=== PATIENT | male | born 1970 | race Caucasian/White ===

== ENCOUNTER 2017-12-21 21:22 | Inpatient (IN) | payer MEDICAID, SELFPAY ==
[2017-12-21 21:24] VITALS: BP 147/106; PULSE 125; RESP 15; TEMP 36.6; O2SAT 94; BMI 24.4
[2017-12-21 22:24] LABS: Hematocrit 49.4 % (40-54); Hemoglobin 16.7 g/dl (13.0-16.5); Mean Corp Hgb Conc 33.8 g/gl (32-36); Mean Corpuscular Hgb 30.5 pg (27.0-32.0); Mean Corpuscular Volume 90.3 fL (80-94); Mean Platelet Vol. 9.2 fl (6.2-12.0); Platelet Count 221 K/mm3 (150-450); RBC Distribution Width CV 13.7 % (11.6-14.6); RBC Distribution Width SD 45.5 fl (35.1-43.9); Red Blood Count 5.47 M/mm3 (4.6-6.2); Scan Indicated on CBC? Y/N NO; White Blood Count 7.4 K/mm3 (4.4-11.0)
[2017-12-21] MEDS: proMETHazine 25 MG/ML Syringe 6.25 MG IV (22:33)
[2017-12-21] MEDS: 0.9% Normal Saline 1,000 ML 1000 ML IV (22:33)
--- NOTE | 2017-12-21 22:35 | RAD_ITS ---
STUDY: X-RAY CHEST REASON FOR EXAM: Male, 47 years old. Nausea vomiting swelling and hallucinations. Alcohol abuse. TECHNIQUE: Frontal and lateral views of the chest. COMPARISON: None. FINDINGS: The lungs are clear and expanded. There is no demonstrated pleural abnormality. Normal size heart. Normal mediastinum and adele. Normal visualized pulmonary arteries. Normal visualized aortic arch and descending thoracic aorta. Normal visualized thoracic spine. Normal visualized ribs, clavicles, and shoulders. There is no demonstrated abnormality of the visualized soft tissue structures of the upper abdomen. RAD/Chest PA and Lateral IMPRESSION: Normal x-ray examination of the chest. Electronically Signed: Roger Villarreal MD at 23:10 EDT , Service support ,
[2017-12-21 22:39] LABS: ALB/GLOB Ratio 0.8 RATIO (0.9-2.4); AST(SGOT) 99 U/L (15-37); Alanine Aminotransfer ALT/SGPT 165 U/L (16-61); Albumin, Serum 3.5 g/dL (3.2-5.0); Alkaline Phosphatase 85 U/L (45-117); Anion Gap 9 (5-15); BUN 15 mg/dL (7-18); BUN/Creat Ratio 12.5 RATIO (10-20); Chloride 116 mmol/L (98-107); EST Glomerular Filtration Rate 69 mL/min (>60); Est Glom Filt Rate - Afr Amer 84 mL/min (>60); Estimated Creatinine Clearance 81.92 ml/min; Globulin 4.4 g/dL (2.2-4.2); Glucose 107 mg/dL (74-106); Lipase 280 U/L (73-393); Potassium 3.7 mmol/L (3.5-5.1); Protein, Total 7.9 g/dL (6.4-8.2); Sodium Level 148 mmol/L (136-145)
[2017-12-21 22:46] LABS: Amphetamine Urine VISTA NEGATIVE (<1000 ng/mL); Barbiturate Urine VISTA NEGATIVE (< 200 ng/mL); Benzodiazepine Urine VISTA NEGATIVE (< 200 ng/mL); Cocaine Urine VISTA NEGATIVE (< 300 ng/mL); Ecstacy Urine VISTA NEGATIVE (< 500 ng/mL); Methadone Urine VISTA NEGATIVE (< 300 ng/mL); PCP Urine VISTA NEGATIVE (< 25 ng/mL); THC Urine VISTA NEGATIVE (< 50 ng/mL); Vista UDS pH Range 5
[2017-12-21 23:23] VITALS: PULSE 92; RESP 19
--- NOTE | 2017-12-21 23:52 | ED.VISSUMM ---
- ER Visit Summary Date of Service: 12/21/17 Chief Complaint: Alcohol withdrawal History of Present Illness: The patient is a 47 M who presents with somebody from [employer] reporting that he is in alcohol withdrawal. States that he drinks 1 L of vodka per day. He reports that he drank a liter of vodka today. However, he reports that he has not had a drink for 14 hours. Patient also has a history of intravenous methamphetamine abuse. He reports that he has not used since December 05. He is a very poor informant. Physical Examination: Vitals: 97.8, 147 106, 125, 15, 94% on room air which is not hypoxic. General: Well-nourished and well-developed. Clearly intoxicated. Head: Normocephalic atraumatic. Neck: Supple, no lymphadenopathy. No JVD. Nontender. Cardiovascular: Regular rate and rhythm. No murmurs. Respiratory: No respiratory distress. Clear to auscultation bilaterally. Abdominal: Soft, mild right upper quadrant tenderness to palpation, nondistended, normal bowel sounds. No guarding, rebound, or peritoneal signs. Back: Nontender. Extremities: Nontender, no edema. Skin: Normal color, no rash. Neurologic: Alert and oriented ?3. Cranial nerves II through XII are intact. Normal strength and sensation. Psych: Depressed affect. Test Results: Blood alcohol level is 366 at 10 PM. Tox screen is negative. CBC is marked for hemoglobin 16.7. Chem-7 is more for sodium 148, chloride 116, glucose 107, calcium 8.0. LFTs marked for globulin 4.4, ALT 165, and AST of 99. Lipase is normal. Tox screen is negative. Emergency Department Course and Treatment: Patient was given a liter bolus normal saline. Is given dose of Phenergan IV. When I went back into discuss his alcohol level with the patient and the counselor she had left. I contacted her on the phone and she reports that he does not have anyone at home that can keep an eye on him. Treatment Plan: The patient will be observed in the emergency department overnight. He will then be reassessed to see if he still wants to go through detox/rehab and if he is truly having alcohol withdrawal. Disposition: Pending Impression: 1. Alcohol intoxication. 2. Reported methamphetamine abuse. 3. History of hepatitis C. This note was generated with Dragon dictation software. It may contain incorrect words, spelling, and punctuation that were not noted in review of the chart prior to signing ED Disposition - Plan for ED Patient: Chief Complaint: Subst Abuse Referrals: [facility] Doctor,Out of [Primary Care Provider] -
[2017-12-22] VITALS (14 sets, daily range): BP systolic 99–131; BP diastolic 62–78; PULSE 70–91; RESP 12–20; TEMP 36.8–37.4; O2SAT 95–99; BMI 25.0; BMI 25.1
--- NOTE | 2017-12-22 00:03 | ED.DCSUM_ITS ---
- ER Visit Summary Date of Service: 12/21/17 Chief Complaint: Alcohol withdrawal History of Present Illness: The patient is a 47 M who presents with somebody from [employer] reporting that he is in alcohol withdrawal. States that he drinks 1 L of vodka per day. He reports that he drank a liter of vodka today. However, he reports that he has not had a drink for 14 hours. Patient also has a history of intravenous methamphetamine abuse. He reports that he has not used since December 05. He is a very poor informant. Physical Examination: Vitals: 97.8, 147 106, 125, 15, 94% on room air which is not hypoxic. General: Well-nourished and well-developed. Clearly intoxicated. Head: Normocephalic atraumatic. Neck: Supple, no lymphadenopathy. No JVD. Nontender. Cardiovascular: Regular rate and rhythm. No murmurs. Respiratory: No respiratory distress. Clear to auscultation bilaterally. Abdominal: Soft, mild right upper quadrant tenderness to palpation, nondistended , normal bowel sounds. No guarding, rebound, or peritoneal signs. Back: Nontender. Extremities: Nontender, no edema. Skin: Normal color, no rash. Neurologic: Alert and oriented ?3. Cranial nerves II through XII are intact. Normal strength and sensation. Psych: Depressed affect. Test Results: Blood alcohol level is 366 at 10 PM. Tox screen is negative. CBC is marked for hemoglobin 16.7. Chem-7 is more for sodium 148, chloride 116 , glucose 107, calcium 8.0. LFTs marked for globulin 4.4, ALT 165, and AST of 99. Lipase is normal. Tox screen is negative. Emergency Department Course and Treatment: Patient was given a liter bolus normal saline. Is given dose of Phenergan IV. When I went back into discuss his alcohol level with the patient and the counselor she had left. I contacted her on the phone and she reports that he does not have anyone at home that can keep an eye on him. Treatment Plan: The patient will be observed in the emergency department overnight. He will then be reassessed to see if he still wants to go through detox/rehab and if he is truly having alcohol withdrawal. Disposition: Pending Impression: 1. Alcohol intoxication. 2. Reported methamphetamine abuse. 3. History of hepatitis C. This note was generated with Dragon dictation software. It may contain incorrect words, spelling, and punctuation that were not noted in review of the chart prior to signing ED Disposition - Plan for ED Patient: Chief Complaint: Subst Abuse Referrals: [facility] Doctor,Out of [Primary Care Provider] -
--- NOTE | 2017-12-22 06:44 | PCM.HP.STD ---
Problem List (1) Heroin abuse Status: Chronic (2) Alcohol abuse Status: Chronic (3) Methamphetamine abuse Status: Chronic (4) IV drug abuse Status: Chronic History of Present Illness Date of Admission: 12/22/17 Chief Complaint: Acute EtOH Withdrawal The patient is a 47 y/o M w/ PMHx: EtOH Abuse (Vodka 2L/day), Injected Methamphetamine Use (last 12/11/17, notes usually daily, ~$50 dollars worth, last injection RUE), Heroin/Fentanyl injection sparingly (Last ~ 1 week prior) who presents to the [facility] on w/ noted acute EtOH withdrawal, onset starting 12/22/17 AM following last EtOH intake 12/21/17 late afternoon/evening with onset of nausea, tremors, agitation, tactile disturbances. Patient interested in attaining sober status. He denies ever having been through an acute withdrawal program, but notes he was hospitalized prior secondary to withdrawal and possible DTs onset. He notes living with his ex- and his daughter. He notes that his does not drink nor does she use drugs. He notes his usage is a main reason for their separation. Past Medical History Past Medical History (Chronic Problems): Chronic Problems Heroin abuse (Chronic) Alcohol abuse (Chronic) Methamphetamine abuse (Chronic) IV drug abuse (Chronic) Allergies Penicillins [PCN] Allergy (Verified 12/21/17 21:48) Unknown Home Medications: Ambulatory Orders Medication Instructions Recorded NK [NK] 12/21/17 Surgical History: - - States he has had an I&D on the buttock and ontiveros for an abscess, possibly MRSA. Psychiatric History: Anxiety, Depression Lives: - - Lives with his ex- and daughter. Smoking Status: Never smoker Tobacco Use: Non-smoker Alcohol: Heavy - Vodka 2L/day Drugs: - - Injected Methamphetamine Use (last 12/11/17, notes usually daily, ~$50 dollars worth, last injection RUE), Heroin/Fentanyl injection sparingly (Last ~ 1 week prior). - *Family History Maternal History Items: - - Patient notes a maternal family history of diabetes. Paternal History Items: - - Patient states that his father is relatively healthy with no history of hypertension, hyperlipidemia, diabetes, heart disease. Review of Systems Constitutional: Reports: Anorexia, Chills, Malaise, Weakness, Fatigue. Denies: Fever, Weight Change HEENT: Denies: Head Aches, Sinus Congestion, Sinus Drainage Cardiovascular: Denies: Chest Pain, Palpitations Respiratory: Denies: Cough, Shortness of breath at rest, Sputum production Gastrointestinal: Reports: Abdominal Pain, Nausea. Denies: Vomiting Genitourinary: Denies: Dysuria Musculoskeletal: Denies: Joint Pain, Joint Tenderness Skin: Reports: Skin Changes. Denies: Rash, Wounds Neurological: Reports: Tremor. Denies: Focal weakness, Numbness, Tingling Psychiatric: Reports: Anxiety, Depression. Denies: Homicidal Ideations, Suicidal Ideations Hematologic/ Lymphatic: Denies: Easy Bruising, Easy Bleeding VTE Information - Inpt Only VTE Present on Admission: No VTE Mechan Device Prophylaxis: SCD's VTE Pharm Prophylaxis ordered?: No Reason prophylaxis not ordered:: Treatment Not Indicated - Low risk, XIOMY/SCD. Subjective: Seated upright in the ED bed, evident acute withdrawal with tremors, notes feeling poorly. Objective: Physical Examination: General: awake, alert, oriented x 3 and cooperative, seated upright in the ED bed, flushed, tremors present, evident acute withdrawal. Skin: normal color, turgor, no icterus, cyanosis except bilateral lower extremity very staged ecchymoses. HEENT: AT/NC, EOMI, PERRLA, dry MM, no carotid bruits or JVD noted. Lungs: CTA bilaterally, moderate effort, moderate decrease BL bases, no rales, ronchi or wheezing. Heart: Regular rate and rhythm; no gallop, rub audible. Abdomen: soft, NTTP, ND, normal BS, + HM. Extremities: no cyanosis, clubbing, or edema. Neurological: patient awake, alert, oriented x 3; cognitive function intact; pupils equally reactive to light and accomodation; cranial nerves II-XII grossly normal, moving all 4 extremities, no focal deficits, strength severely globally decreased secondary to acute presentation, tremors present, evident acute withdrawal present. Psychiatric: affect appears fatigued, mildly strain secondary to acute withdrawal, does admit likely to anxiety and depression but no acute evidence. - Physical Exam Vital Signs Temp Pulse Resp BP Pulse Ox 97.8 F 88 20 H 131/75 H 99 12/21/17 21:24 12/22/17 06:40 12/22/17 06:40 12/22/17 06:40 12/22/17 06:40 Oxygen Delivery Method Room Air Weight: 175 lb Body Mass Index (BMI) 24.4 Laboratory Tests Past 24 Hrs 12/21/17 12/21/17 12/21/17 22:00 22:00 22:00 WBC 7.4 RBC 5.47 Hgb 16.7 H Hct 49.4 MCV 90.3 MCH 30.5 MCHC 33.8 RDW 13.7 RDW Differential 45.5 H Plt Count 221 MPV 9.2 Sodium 148 H Potassium 3.7 Chloride 116 H Carbon Dioxide 23.0 Anion Gap 9 BUN 15 Creatinine 1.20 Estim Creat Clear Calc 81.92 Est GFR (MDRD) Af Amer 84 Est GFR (MDRD) Non-Af 69 BUN/Creatinine Ratio 12.5 Glucose 107 H Calcium 8.0 L Total Bilirubin 0.20 AST 99 H ALT 165 H Alkaline Phosphatase 85 Total Protein 7.9 Albumin 3.5 Globulin 4.4 H Albumin/Globulin Ratio 0.8 L Lipase 280 Urine Opiates Screen Urine Methadone Screen Ur Barbiturates Screen Ur Phencyclidine Scrn Ur Amphetamines Screen U Methamphetamin-MDMA U Benzodiazepines Scrn Urine Cocaine Screen U Cannabinoids Screen Ur Drug Screen Comment Ethyl Alcohol 366.0 H* 12/21/17 22:15 WBC RBC Hgb Hct MCV MCH MCHC RDW RDW Differential Plt Count MPV Sodium Potassium Chloride Carbon Dioxide Anion Gap BUN Creatinine Estim Creat Clear Calc Est GFR (MDRD) Af Amer Est GFR (MDRD) Non-Af BUN/Creatinine Ratio Glucose Calcium Total Bilirubin AST ALT Alkaline Phosphatase Total Protein Albumin Globulin Albumin/Globulin Ratio Lipase Urine Opiates Screen NEGATIVE Urine Methadone Screen NEGATIVE Ur Barbiturates Screen NEGATIVE Ur Phencyclidine Scrn NEGATIVE Ur Amphetamines Screen NEGATIVE U Methamphetamin-MDMA NEGATIVE U Benzodiazepines Scrn NEGATIVE Urine Cocaine Screen NEGATIVE U Cannabinoids Screen NEGATIVE Ur Drug Screen Comment Ethyl Alcohol Assessment/Plan The patient is a 47 y/o M w/ PMHx: EtOH Abuse, Injected Methamphetamine Use, Heroin/Fentanyl injection sparingly who presents to the [facility] on w/ noted acute EtOH withdrawal, onset starting 12/22/17 AM following last EtOH intake 12/21/17 late afternoon/evening with onset of nausea, tremors, agitation, tactile disturbances. (1) Acute EtOH Withdrawal: Will admit to [facility] on telemetry, obtain routine labs including CBC, CMP, urine for drug screen, urinalysis, serum lipase, routine EKG and will initiate and continue on [facility] service protocol with taper course of ativan, as needed Seroquel, Catapres, Bentyl, Vistaril, IV fluids, IV antiemetics, Tylenol as needed for pain. Once patient clinically improved and completion of taper nearing will plan [facility] assistance for transition to next level of rehabilitation care. Mag, phos pending. Maintain on CIWA protocol. (2) Polysubstance Abuse, IVDA Hx, Intermittent Methamphetamine and Opiate/Heroin/Fentanyl Abuse: Notes no routine usage in regards to opiate usage, but routine daily methamphetamine injections. Discussed risk of HIV< hepatitis and amenable to evaluation, HIV and hepatitis panel pending. If hepatitis + discussed that he would currently not be a candidate as needs to be clean, sober x 6 months, documented attendance NA or AA meetings, counseling and ongoing negative drug screens. Encouraged PCP establishment and follow-up. (3) DVT Prophylaxis: SCDs/XIOMY, ambulation, lower risk. Code Visit Inpatient E&M: 86445 Init Hosp L2
--- NOTE | 2017-12-22 06:57 | NURSING ---
323 ACUTE ETOH WITHDRAWAL WHITE
[2017-12-22] MEDS: chlordiazePOXIDE 25 MG Capsule 50 MG PO ×3 (07:25→17:35)
[2017-12-22] MEDS: Multivitamins,Ther W-Minerals Tablet 1 TABLET PO (09:09)
[2017-12-22] MEDS: Lactated Ringers 1,000 ML 125 ML IV (09:09)
[2017-12-22] MEDS: cloNIDine HCl 0.1 MG Tablet PO ×4 (09:09→21:11)
[2017-12-22] MEDS: Thiamine Hydrochloride 100 MG Tablet PO (09:09)
[2017-12-22] MEDS: Folic Acid 1 MG Tablet PO (09:09)
[2017-12-22] MEDS: Famotidine 20 MG Tablet PO ×2 (09:10→21:11)
[2017-12-22 09:28] LABS: Lipase 208 U/L (73-393); Magnesium 1.7 mg/dL (1.6-2.6); Phosphorus 2.4 mg/dL (2.5-4.9)
[2017-12-22] MEDS: LORazepam 1 MG Tablet 2 MG PO ×3 (11:47→20:16)
[2017-12-22] MEDS: Na Biphos/Potassium Phosphate PACKET 1 PACKET PO ×3 (12:23→21:11)
[2017-12-22] MEDS: Ondansetron ODT 4 MG Tablet PO (20:17)
[2017-12-22] MEDS: Methocarbamol 750 MG Tablet PO (20:18)
[2017-12-22] MEDS: LORazepam 2 MG/ML Syringe IV (21:12)
[2017-12-22] MEDS: 0.9% NaCl Peripheral Flush Adult/Peds IV (21:13)
[2017-12-23] MEDS: cloNIDine HCl 0.1 MG Tablet PO (01:40)
[2017-12-23] MEDS: chlordiazePOXIDE 25 MG Capsule 50 MG PO ×2 (01:40→06:30)
[2017-12-23 03:33] VITALS: BP 110/64; PULSE 55; PULSE 56; PULSE 59; RESP 14; RESP 16; TEMP 36.6; O2SAT 98
[2017-12-23] MEDS: LORazepam 2 MG/ML Syringe IV (04:10)
[2017-12-23] MEDS: 0.9% NaCl Peripheral Flush Adult/Peds IV (04:11)
[2017-12-23 06:13] LABS: Absolute Lymphocyte Count 1.45 X10^3/ul (0.83-4.51); Absolute Neutrophil Count 2.5 X10^3/uL (2.0-7.7); Basophil# 0.03 X10^3/uL; Basophil% 0.6 % (0-1); Eosinophil# 0.12 X10^3/uL; Eosinophils% 2.3 % (0-5); Hematocrit 43.9 % (40-54); Hemoglobin 14.4 g/dl (13.0-16.5); Lymphocyte # 1.45 X10^3/ul (4.0); Lymphocyte % 28.3 % (19-41); Mean Corp Hgb Conc 32.8 g/gl (32-36); Mean Corpuscular Hgb 29.7 pg (27.0-32.0); Mean Corpuscular Volume 90.5 fL (80-94); Mean Platelet Vol. 9.7 fl (6.2-12.0); Monocyte# 0.99 X10^3/uL; Monocyte% 19.3 % (0-10); Neutrophil # 2.51 X10^3/uL (2.7-7.7); Neutrophil % 48.9 % (47-70); Platelet Count 134 K/mm3 (150-450); RBC Distribution Width CV 13.4 % (11.6-14.6); RBC Distribution Width SD 44.1 fl (35.1-43.9); Red Blood Count 4.85 M/mm3 (4.6-6.2); White Blood Count 5.1 K/mm3 (4.4-11.0)
[2017-12-23 06:19] LABS: Anion Gap 6 (5-15); BUN 11 mg/dL (7-18); BUN/Creat Ratio 12.4 RATIO (10-20); Calcium,Total 8.4 mg/dL (8.5-10.1); Chloride 108 mmol/L (98-107); Creatinine, Serum 0.89 mg/dL (0.70-1.30); EST Glomerular Filtration Rate 98 mL/min (>60); Est Glom Filt Rate - Afr Amer 118 mL/min (>60); Estimated Creatinine Clearance 107.08 ml/min; Glucose 100 mg/dL (74-106); Potassium 4.1 mmol/L (3.5-5.1); Sodium Level 141 mmol/L (136-145)
[2017-12-23 06:33] VITALS: BP 110/66; PULSE 56; O2SAT 97
[2017-12-23 06:37] VITALS: BP 110/66; PULSE 57; RESP 14; TEMP 37.1
[2017-12-23 06:42] LABS: POSITIVE COUNT NO; POSITIVE DIFFERENTIAL NO; POSITIVE MORPHOLOGY NO
[2017-12-23 08:23] VITALS: BP 116/75; PULSE 65; RESP 18; TEMP 37.3; O2SAT 97
[2017-12-23] MEDS: Multivitamins,Ther W-Minerals Tablet 1 TABLET PO (08:28)
[2017-12-23] MEDS: Folic Acid 1 MG Tablet PO (08:28)
[2017-12-23] MEDS: Famotidine 20 MG Tablet PO (08:29)
[2017-12-23] MEDS: Na Biphos/Potassium Phosphate PACKET 1 PACKET PO (08:29)
[2017-12-23] MEDS: LORazepam 1 MG Tablet 2 MG PO (08:29)
[2017-12-23] MEDS: Thiamine Hydrochloride 100 MG Tablet PO (08:29)
--- NOTE | 2017-12-23 09:47 | PCM.PN.HOSP ---
Patient Problems: Active and Suspected Problems Alcohol withdrawal delirium, acute, hyperactive (Acute) Subjective: Feeling much better today but stated does have some tremulousness but overall better. Patient states that he has to go today because his boss who recently fired him for his drug and alcohol abuse states that he has a place for the patient to go affiliated with his jehovah's witness and patient's states that he also has gotten his old job back. Vitals/I&O's: Vital Signs Temp Pulse Resp BP Pulse Ox 37.3 C 65 18 116/75 97 12/23/17 08:23 12/23/17 08:23 12/23/17 08:23 12/23/17 08:23 12/23/17 08:23 Oxygen Delivery Method Room Air Weight: 81.221 kg Body Mass Index (BMI) 25.0 Intake and Output for Last 24 Hours 12/21/17 12/22/17 12/23/17 23:59 23:59 23:59 Intake Total 1761 / 1761 200 / 200 Output Total 300 / 300 Balance 176 / 1761 -100 / -100 General: Alert, - - anxious HEENT: Atraumatic, Normocephalic Laboratory Results 12/23/17 05:45: WBC 5.1, RBC 4.85, Hgb 14.4, Hct 43.9, MCV 90.5, MCH 29.7, MCHC 32.8, RDW 13.4, RDW Differential 44.1 H, Plt Count 134 L, MPV 9.7, Immature Gran % (Auto) 0.600, Neut % (Auto) 48.9, Lymph % (Auto) 28.3, [place] % (Auto) 19.3 H, Eos % (Auto) 2.3, Baso % (Auto) 0.6, Absolute Neuts (auto) 2.5, Absolute Lymphs (auto) 1.45, Total Counted Not Reportable 12/23/17 05:45: Sodium 141, Potassium 4.1, Chloride 108 H, Carbon Dioxide 27.0, Anion Gap 6, BUN 11, Creatinine 0.89, Estim Creat Clear Calc 107.08, Est GFR (MDRD) Af Amer 118, Est GFR (MDRD) Non-Af 98, BUN/Creatinine Ratio 12.4, Glucose 100, Calcium 8.4 L Current Medications Acetaminophen (Tylenol) 500 mg PO Q4H PRN PRN PRN Reason: Temp > 100.4 F Al Hydroxide/Mg Hydroxide (Mylanta Ii) 30 ml PO Q6H PRN PRN PRN Reason: dyspesia Bisacodyl (Dulcolax) 10 mg RECTAL DAILY PRN PRN Reason: Constipation Chlordiazepoxide (Librium) 50 mg PO Q8H HUNG PRN Reason: Taper Stop: 12/25/17 13:59 Last Admin: 12/23/17 06:30 Dose: 50 mg Clonidine (Catapres) 0.1 mg PO Q4 [facility] Last Admin: 12/23/17 06:34 Dose: Not Given Dicyclomine HCl (Bentyl) 20 mg PO Q6H PRN PRN PRN Reason: abdominal discomfort Famotidine (Pepcid) 20 mg PO BID [facility] Last Admin: 12/23/17 08:29 Dose: 20 mg Folic Acid (Folic Acid) 1 mg PO DAILY@0800 [facility] Last Admin: 12/23/17 08:28 Dose: 1 mg Hydroxyzine Pamoate (Vistaril Pamoate Capsule) 50 mg PO Q6H PRN PRN PRN Reason: Mild Anxiety (score 1/3) Ibuprofen (Motrin) 600 mg PO Q8H PRN PRN PRN Reason: Mild-Moderate Pain (1-5/10) Loperamide HCl (Imodium) 2 - 4 mg PO UD PRN PRN Reason: LOOSE STOOLS Lorazepam (Ativan) 2 mg PO Q2H PRN PRN; Protocol PRN Reason: CIWA score > 8 but <15 Last Admin: 12/23/17 08:29 Dose: 2 mg Lorazepam (Ativan) 2 mg PO UD PRN; Protocol PRN Reason: CIWA score >/=15. Lorazepam (Ativan) 2 mg IV Q2H PRN PRN; Protocol PRN Reason: CIWA score > 8 but <15 Last Admin: 12/23/17 04:10 Dose: 2 mg Lorazepam (Ativan) 2 mg IV UD PRN; Protocol PRN Reason: CIWA score >/=15. Magnesium Hydroxide (Milk Of Magnesia) 30 ml PO DAILY PRN PRN PRN Reason: Constipation Methocarbamol (Methocarbamol) 750 mg PO Q6H PRN PRN PRN Reason: Muscle Aches Last Admin: 12/22/17 20:18 Dose: 750 mg Multivitamins/Minerals ([facility]) [facility] Last Admin: 12/23/17 08:28 Dose: 1 tablet Ondansetron HCl (Zofran Odt) 4 mg PO Q6H PRN PRN PRN Reason: NAUSEA Last Admin: 12/22/17 20:17 Dose: 4 mg Potassium Phos/Sodium Phos (Neutra-Phos Packet) 1 [facility] 4X/[facility] Last Admin: 12/23/17 08:29 Dose: 1 packet Pramipexole Dihydrochloride (Mirapex) 0.25 mg PO Q12H PRN PRN PRN Reason: Restless legs Quetiapine Fumarate (Seroquel) 25 mg PO Q6H PRN PRN PRN Reason: Moderate Anxiety (score 2/3) Senna (Senokot) 1 tablet PO QHS PRN PRN Reason: Constipation Sodium Chloride () 5 - 30 ml IV UD PRN PRN Reason: SALINE FLUSH Last Admin: 12/23/17 04:11 Dose: 10 ml Thiamine HCl (Vitamin B1) [facility] Last Admin: 12/23/17 08:29 Dose: 100 mg Trazodone HCl (Desyrel) 50 mg PO QHS [facility] Last Admin: 12/22/17 21:11 Dose: Not Given Medical Necessity - Tobacco Use Smoking Status: Never smoker Tobacco Use: Non-smoker Assessment/Plan Active and Suspected Problems Alcohol withdrawal delirium, acute, hyperactive (Acute) 1. Acute alcohol withdrawal Calculated CIWA is 4. Patient just came in yesterday but saying that he 3 days. Patient states that he has something set up through his former employer. Unable to validate this but patient assures me that this is accurate and that he does have a job set up for him to be started on December 24. I will give the patient just couple Days worth of Librium as needed. I did review the patient's [place] and saw that his last prescription for any controlled substances was on May 2017. Patient was instructed to take multivitamin 2. Polysubstance abuse With amphetamines and opiates. Patient's opiates usage was about a week prior. And last use of methamphetamines was on the . This will certainly complicate his withdrawal process but patient will need to have further follow-up to ensure complete sobriety.
--- NOTE | 2017-12-23 09:52 | PN_ITS ---
Patient Problems: Active and Suspected Problems Alcohol withdrawal delirium, acute, hyperactive (Acute) Subjective: Feeling much better today but stated does have some tremulousness but overall better. Patient states that he has to go today because his boss who recently fired him for his drug and alcohol abuse states that he has a place for the patient to go affiliated with his latter day and patient's states that he also has gotten his old job back. Vitals/I&O's: Vital Signs Temp Pulse Resp BP Pulse Ox 37.3 C 65 18 116/75 97 12/23/17 08:23 12/23/17 08:23 12/23/17 08:23 12/23/17 08:23 12/23/17 08:23 Oxygen Delivery Method Room Air Weight: 81.221 kg Body Mass Index (BMI) 25.0 Intake and Output for Last 24 Hours 12/21/17 12/22/17 12/23/17 23:59 23:59 23:59 Intake Total 1761 / 1761 200 / 200 Output Total 300 / 300 Balance 176 / 1761 -100 / -100 General: Alert, - - anxious HEENT: Atraumatic, Normocephalic Laboratory Results 12/23/17 05:45: WBC 5.1, RBC 4.85, Hgb 14.4, Hct 43.9, MCV 90.5, MCH 29.7, MCHC 32.8, RDW 13.4, RDW Differential 44.1 H, Plt Count 134 L, MPV 9.7, Immature Gran % (Auto) 0.600, Neut % (Auto) 48.9, Lymph % (Auto) 28.3, Guadalupe % (Auto) 19.3 H, Eos % (Auto) 2.3, Baso % (Auto) 0.6, Absolute Neuts (auto) 2.5, Absolute Lymphs (auto) 1.45, Total Counted Not Reportable 12/23/17 05:45: Sodium 141, Potassium 4.1, Chloride 108 H, Carbon Dioxide 27.0, Anion Gap 6, BUN 11, Creatinine 0.89, Estim Creat Clear Calc 107.08, Est GFR ( MDRD) Af Amer 118, Est GFR (MDRD) Non-Af 98, BUN/Creatinine Ratio 12.4, Glucose 100, Calcium 8.4 L Current Medications Acetaminophen (Tylenol) 500 mg PO Q4H PRN PRN PRN Reason: Temp > 100.4 F Al Hydroxide/Mg Hydroxide (Mylanta Ii) 30 ml PO Q6H PRN PRN PRN Reason: dyspesia Bisacodyl (Dulcolax) 10 mg RECTAL DAILY PRN PRN Reason: Constipation Chlordiazepoxide (Librium) 50 mg PO Q8H HUNG PRN Reason: Taper Stop: 12/25/17 13:59 Last Admin: 12/23/17 06:30 Dose: 50 mg Clonidine (Catapres) 0.1 mg PO Q4 [facility] Last Admin: 12/23/17 06:34 Dose: Not Given Dicyclomine HCl (Bentyl) 20 mg PO Q6H PRN PRN PRN Reason: abdominal discomfort Famotidine (Pepcid) 20 mg PO BID [facility] Last Admin: 12/23/17 08:29 Dose: 20 mg Folic Acid (Folic Acid) 1 mg PO DAILY@0800 [facility] Last Admin: 12/23/17 08:28 Dose: 1 mg Hydroxyzine Pamoate (Vistaril Pamoate Capsule) 50 mg PO Q6H PRN PRN PRN Reason: Mild Anxiety (score 1/3) Ibuprofen (Motrin) 600 mg PO Q8H PRN PRN PRN Reason: Mild-Moderate Pain (1-5/10) Loperamide HCl (Imodium) 2 - 4 mg PO UD PRN PRN Reason: LOOSE STOOLS Lorazepam (Ativan) 2 mg PO Q2H PRN PRN; Protocol PRN Reason: CIWA score > 8 but <15 Last Admin: 12/23/17 08:29 Dose: 2 mg Lorazepam (Ativan) 2 mg PO UD PRN; Protocol PRN Reason: CIWA score >/=15. Lorazepam (Ativan) 2 mg IV Q2H PRN PRN; Protocol PRN Reason: CIWA score > 8 but <15 Last Admin: 12/23/17 04:10 Dose: 2 mg Lorazepam (Ativan) 2 mg IV UD PRN; Protocol PRN Reason: CIWA score >/=15. Magnesium Hydroxide (Milk Of Magnesia) 30 ml PO DAILY PRN PRN PRN Reason: Constipation Methocarbamol (Methocarbamol) 750 mg PO Q6H PRN PRN PRN Reason: Muscle Aches Last Admin: 12/22/17 20:18 Dose: 750 mg Multivitamins/Minerals (Multivitamin With Minerals) [facility] Last Admin: 12/23/17 08:28 Dose: 1 tablet Ondansetron HCl (Zofran Odt) 4 mg PO Q6H PRN PRN PRN Reason: NAUSEA Last Admin: 12/22/17 20:17 Dose: 4 mg Potassium Phos/Sodium Phos (Neutra-Phos Packet) 1 packet PO 4X[facility] Last Admin: 12/23/17 08:29 Dose: 1 packet Pramipexole Dihydrochloride (Mirapex) 0.25 mg PO Q12H PRN PRN PRN Reason: Restless legs Quetiapine Fumarate (Seroquel) 25 mg PO Q6H PRN PRN PRN Reason: Moderate Anxiety (score 2/3) Senna (Senokot) 1 tablet PO QHS PRN PRN Reason: Constipation Sodium Chloride () 5 - 30 ml IV UD PRN PRN Reason: SALINE FLUSH Last Admin: 12/23/17 04:11 Dose: 10 ml Thiamine HCl (Vitamin B1) 100 [facility] Last Admin: 12/23/17 08:29 Dose: 100 mg Trazodone HCl (Desyrel) 50 mg PO QHS [facility] Last Admin: 12/22/17 21:11 Dose: Not Given Medical Necessity - Tobacco Use Smoking Status: Never smoker Tobacco Use: Non-smoker Assessment/Plan Active and Suspected Problems Alcohol withdrawal delirium, acute, hyperactive (Acute) 1. Acute alcohol withdrawal * Calculated CIWA is 4. * Patient just came in yesterday but saying that he 3 days. Patient states that he has something set up through his former employer. Unable to validate this but patient assures me that this is accurate and that he does have a job set up for him to be started on December 24. I will give the patient just couple * Days worth of Librium as needed. I did review the patient's [place] and saw that his last prescription for any controlled substances was on May 2017. * Patient was instructed to take multivitamin 2. Polysubstance abuse * With amphetamines and opiates. Patient's opiates usage was about a week prior. And last use of methamphetamines was on the . * This will certainly complicate his withdrawal process but patient will need to have further follow-up to ensure complete sobriety.
--- NOTE | 2017-12-23 09:55 | PCM.DC ---
- Discharge Diagnoses Current Active Problems: Current Active and Chronic Problems Heroin abuse (Chronic) Alcohol abuse (Chronic) Methamphetamine abuse (Chronic) IV drug abuse (Chronic) Alcohol withdrawal delirium, acute, hyperactive (Acute) You will use the following diet at home:: No restrictions Your food should be the consistency of: Regular Call your doctor if you observe: Fever of 101 or Higher, Shortness of breath, Chest pain Allergies/Adverse Reactions: Allergies Penicillins [PCN] Allergy (Verified 12/21/17 21:48) Unknown Medications to take at Discharge Acetaminophen [Tylenol] 500 mg PO Q4H PRN PRN tablet 12/23/17 Chlordiazepoxide [Librium] 50 mg PO Q8H PRN #6 cap 12/23/17 Multivitamins,Ther W-Minerals [Multivitamin With Minerals] 1 tablet PO DAILYCM tablet 12/23/17 The following prescriptions were given: Chlordiazepoxide [Librium] 50 mg PO Q8H PRN #6 cap PRN Reason: Anxiety Primary Care Physician: Em Greco,Out of [Primary Care Provider] - Within 2 Weeks Proposed Discharge Date: 12/23/17
--- NOTE | 2017-12-23 09:56 | PCM.DC.SUM ---
Discharge Date and Diagnosis - Problem List Patient Problems: Active and Suspected Problems Alcohol withdrawal delirium, acute, hyperactive (Acute) Date of Admission: 12/22/17 Date of Discharge: 12/23/17 - Primary Discharge Diagnosis Active and Suspected Problems Alcohol withdrawal delirium, acute, hyperactive (Acute) - Secondary Discharge Diagnosis Chronic Problems Heroin abuse (Chronic) Alcohol abuse (Chronic) Methamphetamine abuse (Chronic) IV drug abuse (Chronic) Hospital Course and Treatment Imaging Results: Clinical Impression(s) from Imaging Studies Chest X-Ray 12/21/17 22:35 IMPRESSION: Normal x-ray examination of the chest. Electronically Signed: Roger Villarreal MD at 23:10 EDT , Service support , Operations: None Procedures: None Summary of Care Provided: The patient is a 47 year old M presents with acute alcohol withdrawal. Patient was drinking about 2 L of vodka per day. No top of that, patient was also injecting methamphetamines and opiates though his usage of those substances was over a week prior to presentation. Patient was presenting with nausea, tremors, agitation and tactile disturbances. Patient was wanted to seek withdrawal treatment. Patient was started on Librium. Patient did well still notes that he is having tremors but is feeling better. 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 Patient states that he has to go today.. Patient is still actively receiving Librium I will give him just a 2 more days worth of the Librium. I do not have any way of validating the patient's truthfulness in regards to these claims but it does seem concerning an individual who just came in here seeking treatment is suddenly had a event he has this set up through a [employer]. Give patient benefit. Patient will receive just 2 days of Librium. And patient will seek further treatment on his own accord. [] Discharge Diet: No Restrictions Discharge Activity: Return to Normal Activity Call your doctor if you observe: Fever of 101 or Higher, Shortness of breath, Chest pain Home Medications: Medications to take at Discharge Acetaminophen [Tylenol] 500 mg PO Q4H PRN PRN tablet 12/23/17 Chlordiazepoxide [Librium] 50 mg PO Q8H PRN #6 cap 12/23/17 Multivitamins,Ther W-Minerals [Multivitamin With Minerals] 1 tablet PO DAILYCM tablet 12/23/17 Following Prescrptions Were Given to Patient: Chlordiazepoxide [Librium] 50 mg PO Q8H PRN #6 cap PRN Reason: Anxiety Primary Care Physician: Em Doctor,Out of [Primary Care Provider] - Within 2 Weeks Disposition: Home Minutes spent on discharge:: 32 Patient Condition:: Fair Medical Necessity - Tobacco Use Smoking Status: Never smoker Tobacco Use: Non-smoker Meaningful Use Info Meaningful Use Diagnoses (Choose all that apply): None applicable Code Visit Inpatient E&M: 60903 Disch Hosp -
[2017-12-23 10:00] VITALS: BP 116/75; PULSE 65; RESP 18; TEMP 37.3
--- NOTE | 2017-12-23 10:00 | DS.PCM_ITS ---
Discharge Date and Diagnosis - Problem List Patient Problems: Active and Suspected Problems Alcohol withdrawal delirium, acute, hyperactive (Acute) Date of Admission: 12/22/17 Date of Discharge: 12/23/17 - Primary Discharge Diagnosis Active and Suspected Problems Alcohol withdrawal delirium, acute, hyperactive (Acute) - Secondary Discharge Diagnosis Chronic Problems Heroin abuse (Chronic) Alcohol abuse (Chronic) Methamphetamine abuse (Chronic) IV drug abuse (Chronic) Hospital Course and Treatment Imaging Results: Clinical Impression(s) from Imaging Studies Chest X-Ray 12/21/17 22:35 IMPRESSION: Normal x-ray examination of the chest. Electronically Signed: Roger Villarreal MD at 23:10 EDT , Service support , Operations: None Procedures: None Summary of Care Provided: The patient is a 47 year old M presents with acute alcohol withdrawal. Patient was drinking about 2 L of vodka per day. No top of that, patient was also injecting methamphetamines and opiates though his usage of those substances was over a week prior to presentation. Patient was presenting with nausea, tremors , agitation and tactile disturbances. Patient was wanted to seek withdrawal treatment. Patient was started on Librium. Patient did well still notes that he is having tremors but is feeling better. Patient states that he had a miracle in which his former employer offered him his job back but that he would need to stay in his [employer] to seek treatment. Patient states that he has to go today.. Patient is still actively receiving Librium I will give him just a 2 more days worth of the Librium. I do not have any way of validating the patient's truthfulness in regards to these claims but it does seem concerning an individual who just came in here seeking treatment is suddenly had a event he has this set up through a [employer]. Give patient benefit. Patient will receive just 2 days of Librium. And patient will seek further treatment on his own accord. [] Discharge Diet: No Restrictions Discharge Activity: Return to Normal Activity Call your doctor if you observe: Fever of 101 or Higher, Shortness of breath, Chest pain Home Medications: Medications to take at Discharge Acetaminophen [Tylenol] 500 mg PO Q4H PRN PRN tablet 12/23/17 Chlordiazepoxide [Librium] 50 mg PO Q8H PRN #6 cap 12/23/17 Multivitamins,Ther W-Minerals [Multivitamin With Minerals] 1 tablet PO DAILYCM tablet 12/23/17 Following Prescrptions Were Given to Patient: Chlordiazepoxide [Librium] 50 mg PO Q8H PRN #6 cap PRN Reason: Anxiety Primary Care Physician: Em Doctor,Out of [Primary Care Provider] - Within 2 Weeks Disposition: Home Minutes spent on discharge:: 32 Patient Condition:: Fair Medical Necessity - Tobacco Use Smoking Status: Never smoker Tobacco Use: Non-smoker Meaningful Use Info Meaningful Use Diagnoses (Choose all that apply): None applicable Code Visit Inpatient E&M: 21774 Disch Hosp -
[2017-12-23 10:23] LABS: HIV - WCH Non-Reactive (Nonreactive)
[2017-12-23 10:24] VITALS: BP 116/75; PULSE 65; RESP 18; TEMP 37.3; O2SAT 97
[2017-12-24 04:08] LABS: HEPATITIS B SURFACE AG Negative (Negative); Hepatitis A AB, Total Positive (Negative); Hepatitis A IgM Antibody Negative (Negative); Hepatitis B Core AB IgM Negative (Negative); Hepatitis B Core Ab Total Negative (Negative); Hepatitis C Ab >11.0 s/co ratio (0.0-0.9)
[2017-12-25 11:33] LABS: Hep B Surface Antibodies Non Reactive (.)
== END 2017-12-23 10:32 | disposition home or self-care (01) | DRG 434 ==
LOC: ED 12-22 04:27 → MS3 12-22 07:04
PROVIDERS: Admitting Provider Family Medicine; Emergency Provider Emergency Medicine
DX: F10.221 Alcohol dependence with intoxication delirium (principal); R44.0 Auditory hallucinations; Y90.8 Blood alcohol level of 240 mg/100 ml or more; F11.10 Opioid abuse, uncomplicated; F19.10 Other psychoactive substance abuse, uncomplicated; F15.10 Other stimulant abuse, uncomplicated; F10.239 Alcohol dependence with withdrawal, unspecified; F32.9 Major depressive disorder, single episode, unspecified; F41.9 Anxiety disorder, unspecified; Z86.19 Personal history of other infectious and parasitic diseases; Z79.899 Other long term (current) drug therapy
CPT/HCPCS: 36415; 71046; 80048; 80053; 80307; 80320; 82550; 83690; 83735; 84100; 85025; 85027; 86703; 86704; 86705; 86706; 86708; 86709; 86803; 87340; 99282; 99284; 99285; J7030; J7120; A4216; G0480

== ENCOUNTER 2017-12-23 19:28 | Emergency (ER) | payer MEDICAID, SELFPAY ==
[2017-12-23 19:29] VITALS: BP 128/80; PULSE 88; RESP 21; TEMP 36.9; O2SAT 93; BMI 25.0
[2017-12-23 20:25] LABS: Absolute Lymphocyte Count 2.01 X10^3/ul (0.83-4.51); Absolute Neutrophil Count 3.5 X10^3/uL (2.0-7.7); Basophil# 0.03 X10^3/uL; Basophil% 0.5 % (0-1); Eosinophil# 0.08 X10^3/uL; Eosinophils% 1.3 % (0-5); Hematocrit 44.8 % (40-54); Hemoglobin 15.1 g/dl (13.0-16.5); Lymphocyte # 2.01 X10^3/ul (4.0); Lymphocyte % 32.3 % (19-41); Mean Corp Hgb Conc 33.7 g/gl (32-36); Mean Corpuscular Volume 89.1 fL (80-94); Mean Platelet Vol. 9.5 fl (6.2-12.0); Monocyte# 0.63 X10^3/uL; Monocyte% 10.1 % (0-10); Neutrophil # 3.47 X10^3/uL (2.7-7.7); Neutrophil % 55.6 % (47-70); Platelet Count 157 K/mm3 (150-450); RBC Distribution Width CV 13.2 % (11.6-14.6); RBC Distribution Width SD 42.7 fl (35.1-43.9); Red Blood Count 5.03 M/mm3 (4.6-6.2); White Blood Count 6.2 K/mm3 (4.4-11.0)
--- NOTE | 2017-12-23 20:30 | NURSING ---
PATIENT REFUSED THE ORAL ATIVAN BECAUSE IT IS NOT IV, HE SAID IT DOES NOT WORK.
[2017-12-23] MEDS: LORazepam 1 MG Tablet PO (20:34)
[2017-12-23 20:39] LABS: POSITIVE COUNT NO; POSITIVE DIFFERENTIAL NO; POSITIVE MORPHOLOGY NO
--- NOTE | 2017-12-23 20:39 | ED.RN ---
DR. HARP REFUSED TO GIVE PATIENT IV ATIVAN. PATIENT TOLD THIS BY THIS NURSE AND AGREED TO TAKE ORAL ATIVAN. ORAL ATIVAN GIVEN AND PATIENT THEN WANTED TO LEAVE THICKET. AMA FORMS SIGNED BY PATIENT AND A COPY GIVEN TO HIM. PATIENT LOADED UP HIS STUFF AND WAS GOING TO WALK BACK TO [facility].
[2017-12-23 20:40] LABS: ALB/GLOB Ratio 0.9 RATIO (0.9-2.4); AST(SGOT) 89 U/L (15-37); Alanine Aminotransfer ALT/SGPT 132 U/L (16-61); Albumin, Serum 3.5 g/dL (3.2-5.0); Alkaline Phosphatase 73 U/L (45-117); Anion Gap 5 (5-15); BUN 10 mg/dL (7-18); BUN/Creat Ratio 9.6 RATIO (10-20); CPK Total, Creatine Kinase 328 U/L (39-308); Chloride 108 mmol/L (98-107); Creatinine, Serum 1.04 mg/dL (0.70-1.30); EST Glomerular Filtration Rate 81 mL/min (>60); Est Glom Filt Rate - Afr Amer 99 mL/min (>60); Estimated Creatinine Clearance 94.53 ml/min; Glucose 78 mg/dL (74-106); Potassium 3.7 mmol/L (3.5-5.1); Protein, Total 7.5 g/dL (6.4-8.2); Sodium Level 142 mmol/L (136-145)
[2017-12-23 21:26] LABS: Amphetamine Urine VISTA NEGATIVE (<1000 ng/mL); Barbiturate Urine VISTA NEGATIVE (< 200 ng/mL); Benzodiazepine Urine VISTA POSITIVE (< 200 ng/mL); Cocaine Urine VISTA NEGATIVE (< 300 ng/mL); Ecstacy Urine VISTA NEGATIVE (< 500 ng/mL); Methadone Urine VISTA NEGATIVE (< 300 ng/mL); PCP Urine VISTA NEGATIVE (< 25 ng/mL); THC Urine VISTA NEGATIVE (< 50 ng/mL); Vista UDS pH Range 7
--- NOTE | 2017-12-24 02:14 | ED.DCSUM_ITS ---
- ER Visit Summary Date of Service: 12/24/17 Chief Complaint: Alcohol withdrawal History of Present Illness: The patient is a 47 M presenting the emergency department due to concern for alcohol withdrawal. Patient was actually just admitted to this facility for the same complaint. He was admitted under the [facility] program, and left the hospital prior to completing his treatment today stating that he needed to go back to work. Patient now is stating that he drank another liter and a half of vodka today. He also states that he uses both methamphetamine and heroin, last use 3 days ago. Patient states that he would like help. He denies being suicidal homicidal, does endorse that he gets auditory hallucinations these are not command hallucinations. Physical Examination: Vital signs are within normal limits, patient is afebrile. General: Patient is well-nourished well-developed and in no acute distress. Head: Normocephalic, atraumatic Eyes: Pupils equal round and reactive bilaterally, extra occular motion intact bialterally ENT: Moist mucous membranes Neck: Supple, no lymphadenopathy, no JVD, no meningismus CVS: Heart regular rate and rhythm, no murmurs, rubs or gallops, radial pulses 2 + bilaterally Resp: Respirations nondistressed, lung sounds clear bilaterally Abdomen: Soft, nontender, nondistended, no palpable masses, normal bowel sounds Back: Nontender Extremities: Nontender, atraumatic, active full range of motion, no peripheral edema Skin: warm, no rashes, no petechia Neuro: Alert and oriented x 4, CN 2-12 intact, no lateralizing neurological defecits Psyc: Patient is not suicidal or homicidal, endorses hallucinations, has pressured speech and tangential ideas Test Results: CBC unremarkable, chemistry unremarkable, liver panel unremarkable , toxicology positive for benzodiazepines, ethanol level was elevated Emergency Department Course and Treatment: Patient presented due to concern for alcohol withdrawal. He was evaluated with lab work as noted above. Patient did request that he receive Ativan as he stated that he was feeling significantly anxious and was withdrawing. I did acquiesce to give the patient p.o. Ativan, he states that this will not be strong enough for him as he has a tolerance to this. He states that he wishes to sign out. Patient signed out of the hospital AGAINST MEDICAL ADVICE. Disposition: Discharge AGAINST MEDICAL ADVICE Impression: 1. Polysubstance abuse This note was generated with [employer] dictation software. It may contain incorrect words, spelling, and punctuation that were not noted in review of the chart prior to signing ED Disposition - Plan for ED Patient: Disposition: Home or Assisted Living Chief Complaint: Mental Health Referrals: [facility],Out of [Primary Care Provider] -
== END 2017-12-23 20:42 | disposition home or self-care (01) ==
PROVIDERS: Emergency Provider Emergency Medicine
DX: F10.239 Alcohol dependence with withdrawal, unspecified (principal); Y90.6 Blood alcohol level of 120-199 mg/100 ml; F19.10 Other psychoactive substance abuse, uncomplicated; R44.0 Auditory hallucinations; Z79.899 Other long term (current) drug therapy
CPT/HCPCS: 80053; 80307; 80320; 82550; 85025; G0480

== ENCOUNTER 2017-12-23 23:15 | Emergency (ER) | payer MEDICAID, SELFPAY ==
[2017-12-23 23:16] VITALS: BP 120/64; PULSE 88; RESP 17; TEMP 36.6; O2SAT 95; BMI 25.4
--- NOTE | 2017-12-24 02:18 | ED.VISSUMM ---
- ER Visit Summary Date of Service: 12/24/17 Chief Complaint: I am dope sick History of Present Illness: The patient is a 47 M presenting for evaluation secondary polysubstance abuse. Patient was seen in the emergency department 2 days ago and was evaluated for alcohol withdrawal. He was ultimately admitted to the [facility] program. Patient signed out AGAINST MEDICAL ADVICE on 430 stating that he needed to go to work. Patient then presented back to the emergency department requesting help and then signed out AGAINST MEDICAL ADVICE when he was only going to be offered oral Ativan. Now he states that he is dope sick. Initially the patient told me that he used to be on fentanyl and last used 2 days ago and then he admitted that he lied about this. Patient states that since he left the emergency department earlier today he did drink again. He denies any other coingestants. Patient denies being suicidal or homicidal, but he does state that he has intermittent hallucinations that are auditory. He states that these are not command hallucinations. Physical Examination: Vital signs are within normal limits, patient is afebrile. General: Patient is well-nourished well-developed and in no acute distress. Head: Normocephalic, atraumatic Eyes: Pupils equal round and reactive bilaterally, extra occular motion intact bialterally ENT: Moist mucous membranes Neck: Supple, no lymphadenopathy, no JVD, no meningismus CVS: Heart regular rate and rhythm, no murmurs, rubs or gallops, radial pulses 2+ bilaterally Resp: Respirations nondistressed, lung sounds clear bilaterally Abdomen: Soft, nontender, nondistended, no palpable masses, normal bowel sounds Back: Nontender Extremities: Nontender, atraumatic, active full range of motion, no peripheral edema Skin: warm, no rashes, no petechia Neuro: Alert and oriented x 4, CN 2-12 intact, no lateralizing neurological defecits Psyc: Patient seems hyperstimulated, is not suicidal or homicidal but he has tangential thoughts and endorses hallucinations. Test Results: Repeat ethanol level was found to be 184 Emergency Department Course and Treatment: Patient presented secondary to complaints of I want help and wanting a magic solution. Actually seen this patient a couple of times, and at this point his alcohol dependence does seem to be an issue but he also seems like he potentially has a psychiatric element to this. He does not have a clear presentation of withdrawal at this time, and does not also appear like a Warneke Korsakoff syndrome. I contacted crisis to evaluate the patient. Patient will be observed until clinically sober and he can undergo crisis evaluation. His disposition is pending. Evaluation. Disposition: Pending Impression: 1. Alcohol dependence 2. Hallucinations This note was generated with [employer] dictation software. It may contain incorrect words, spelling, and punctuation that were not noted in review of the chart prior to signing ED Disposition - Plan for ED Patient: Chief Complaint: ETOH Intox Referrals: [facility] Doctor,Out of [Primary Care Provider] -
--- NOTE | 2017-12-24 02:21 | ED.DCSUM_ITS ---
- ER Visit Summary Date of Service: 12/24/17 Chief Complaint: I am dope sick History of Present Illness: The patient is a 47 M presenting for evaluation secondary polysubstance abuse. Patient was seen in the emergency department 2 days ago and was evaluated for alcohol withdrawal. He was ultimately admitted to the [facility] program. Patient signed out AGAINST MEDICAL ADVICE on 430 stating that he needed to go to work. Patient then presented back to the emergency department requesting help and then signed out AGAINST MEDICAL ADVICE when he was only going to be offered oral Ativan. Now he states that he is dope sick. Initially the patient told me that he used to be on fentanyl and last used 2 days ago and then he admitted that he lied about this. Patient states that since he left the emergency department earlier today he did drink again. He denies any other coingestants. Patient denies being suicidal or homicidal, but he does state that he has intermittent hallucinations that are auditory. He states that these are not command hallucinations. Physical Examination: Vital signs are within normal limits, patient is afebrile. General: Patient is well-nourished well-developed and in no acute distress. Head: Normocephalic, atraumatic Eyes: Pupils equal round and reactive bilaterally, extra occular motion intact bialterally ENT: Moist mucous membranes Neck: Supple, no lymphadenopathy, no JVD, no meningismus CVS: Heart regular rate and rhythm, no murmurs, rubs or gallops, radial pulses 2 + bilaterally Resp: Respirations nondistressed, lung sounds clear bilaterally Abdomen: Soft, nontender, nondistended, no palpable masses, normal bowel sounds Back: Nontender Extremities: Nontender, atraumatic, active full range of motion, no peripheral edema Skin: warm, no rashes, no petechia Neuro: Alert and oriented x 4, CN 2-12 intact, no lateralizing neurological defecits Psyc: Patient seems hyperstimulated, is not suicidal or homicidal but he has tangential thoughts and endorses hallucinations. Test Results: Repeat ethanol level was found to be 184 Emergency Department Course and Treatment: Patient presented secondary to complaints of I want help and wanting a magic solution. Actually seen this patient a couple of times, and at this point his alcohol dependence does seem to be an issue but he also seems like he potentially has a psychiatric element to this. He does not have a clear presentation of withdrawal at this time, and does not also appear like a Warneke Korsakoff syndrome. I contacted crisis to evaluate the patient. Patient will be observed until clinically sober and he can undergo crisis evaluation. His disposition is pending. Evaluation. Disposition: Pending Impression: 1. Alcohol dependence 2. Hallucinations This note was generated with [employer] dictation software. It may contain incorrect words, spelling, and punctuation that were not noted in review of the chart prior to signing ED Disposition - Plan for ED Patient: Chief Complaint: ETOH Intox Referrals: [facility] Doctor,Out of [Primary Care Provider] -
[2017-12-24 04:03] VITALS: BP 104/55; PULSE 87; RESP 18; O2SAT 99
--- NOTE | 2017-12-24 04:08 | NURSING ---
PATIENT IS SLEEPING SOUNDLY, BUT WILL MOAN AND MOVE WHEN I ADJUST HIS PULSE OXIMETRY ON HIS FINGER.
[2017-12-24 05:28] VITALS: BP 109/64; PULSE 66; RESP 24; O2SAT 96
--- NOTE | 2017-12-24 05:29 | NURSING ---
PATIENT IS SLEEPING, BUT WILL RESPOND TO ME WHEN ASKED. HE WILL NOT OPEN HIS EYES.
--- NOTE | 2017-12-24 05:31 | NURSING ---
DR. PLASCENCIA TOLD THIS NURSE THAT CRISIS IS COMING TO TALK TO THE PATIENT THIS AM. HE TOLD ME HE IS NOT PINK SLIPPED AND THAT I CAN LET HIM SLEEP AND DO NOT HAVE TO TAKE HIS CLOTHES.
[2017-12-24 06:50] VITALS: BP 143/88; PULSE 86; RESP 18; O2SAT 94
--- NOTE | 2017-12-24 06:50 | ED.DCSUM_ITS ---
- ER Visit Summary Date of Service: 12/24/17 Chief Complaint: [] History of Present Illness: The patient is a 47 M [] Physical Examination: [] Test Results: [] Emergency Department Course and Treatment: [] Treatment Plan: [] Disposition: [] Impression: [] This note was generated with [employer] dictation software. It may contain incorrect words, spelling, and punctuation that were not noted in review of the chart prior to signing ED Disposition - Plan for ED Patient: Chief Complaint: ETOH Intox Instructions: ED Alcohol Intoxication Referrals: [facility] Doctor,Out of [Primary Care Provider] -
--- NOTE | 2017-12-24 06:51 | NURSING ---
HENRIQUE FROM CRISIS TOLD THIS NURSE THAT HIM AND DR. PLASCENCIA AGREED THAT PATIENT COULD GO HOME. PATIENT IS A LOT MORE ALERT AND ORIENTED CURRENTLY. DOESN'T SEEM INTOXICATED RIGHT NOW.
== END 2017-12-24 06:54 | disposition home or self-care (01) ==
PROVIDERS: Emergency Provider Emergency Medicine
DX: F10.239 Alcohol dependence with withdrawal, unspecified (principal); Y90.6 Blood alcohol level of 120-199 mg/100 ml; R44.3 Hallucinations, unspecified; Z79.899 Other long term (current) drug therapy
CPT/HCPCS: 80053; 80307; 80320; 82550; 85025; 99282; 99284; G0480

== ENCOUNTER 2017-12-24 08:03 | Emergency (ER) | payer MEDICAID, SELFPAY ==
[2017-12-24] VITALS (12 sets, daily range): BP systolic 109–144; BP diastolic 68–87; PULSE 62–86; RESP 14–18; TEMP 35.6; O2SAT 92–100; BMI 26.2
--- NOTE | 2017-12-24 08:41 | ED.RN ---
MILTON WITH CRISIS; CALL WHEN PT IS SOBER AND THEY WILL EVAL PT
--- NOTE | 2017-12-24 09:04 | ED.DCSUM_ITS ---
- ER Visit Summary Date of Service: 12/24/17 Chief Complaint: Alcohol intoxication History of Present Illness: The patient is a 47 M who presents intoxicated. He was seen here a couple of times yesterday. He was admitted to [facility] but then signed out AMA. He told nursing that he cannot think right and that he is not safe at home. He did drink alcohol and smells of alcohol. He does feel like he is confused. Physical Examination: Vital signs reviewed. HEENT exam unremarkable. Heart is regular rate and rhythm without murmurs. Lungs are clear to auscultation. Abdomen is soft and nontender. Extremities reveal no edema. Skin exam normal. Neurologic exam reveals that he is intoxicated and alert and oriented to self and place but not time. He denies being suicidal to me at this time but did tell nursing that he does not feel safe at home Test Results: Lab results reveal elevations of his liver enzymes. Tox screen reveals benzodiazepines. Alcohol level is 225 Emergency Department Course and Treatment: Patient was medicated with Geodon because he kept coming out of bed and not following instructions. He also complained of having auditory and visual hallucinations. Patient then was more cooperative. At this point he will metabolize his alcohol and then he will be evaluated by crisis. He states he does not feel safe at home and I feel that they should evaluate him. Disposition is pending Treatment Plan: [] Disposition: Pending Impression: Depression, alcohol intoxication This note was generated with [employer] dictation software. It may contain incorrect words, spelling, and punctuation that were not noted in review of the chart prior to signing ED Disposition - Plan for ED Patient: Chief Complaint: General Illness Referrals: [facility] Doctor,Out of [Primary Care Provider] -
--- NOTE | 2017-12-24 09:12 | ED.RN ---
PT ESCALATING, WANTS TO LEAVE AMA. DR FISHER STATSE HES UNABLE TO MAKE THAT DECISION AT THIS TIME.. PT REMAINS INTOXICATED. CONTINUOUSLY NEEDS REDIRECTION TO STAY IN ROOM. CLENCHING JAW AND VERBALLY AGRRESSIVE AT THIS TIME.ORDER FOR AMY AND WAITING ON MATER FROM PHARMACY TO MIX.
--- NOTE | 2017-12-24 09:20 | ED.RN ---
UNABLE TO REDIRECT PT BACK INTO [facility]. [address] TALKING WITH PT, ENCOURAGING COOPERATION AND RETURNING TO ROOM. DID RETURN TO ROOM, SECURITY AT BEDSIDE AND MULTIPLE NURSING STAFF AND DR. PT VERBALLY AGRESSIVE AND ALSO PUTTING FISTS UP WITH THREATS OF THIS IS GOING TO GO BAD. I DONT WANT TO HAVE TO DO THIS.
[2017-12-24 09:25] LABS: Amphetamine Urine VISTA NEGATIVE (<1000 ng/mL); Barbiturate Urine VISTA NEGATIVE (< 200 ng/mL); Benzodiazepine Urine VISTA POSITIVE (< 200 ng/mL); Cocaine Urine VISTA NEGATIVE (< 300 ng/mL); Ecstacy Urine VISTA NEGATIVE (< 500 ng/mL); Methadone Urine VISTA NEGATIVE (< 300 ng/mL); PCP Urine VISTA NEGATIVE (< 25 ng/mL); THC Urine VISTA NEGATIVE (< 50 ng/mL); Vista UDS pH Range 7
[2017-12-24] MEDS: Ziprasidone IM 20 MG/ML VIAL IM (09:35)
--- NOTE | 2017-12-24 10:09 | ED.RN ---
PT CALM AND IN BED AT THIS TIME, AFTER GEODON GIVEN WITH [facility] STAFF ASSIST
[2017-12-24 10:20] LABS: Absolute Lymphocyte Count 1.36 X10^3/ul (0.83-4.51); Absolute Neutrophil Count 2.4 X10^3/uL (2.0-7.7); Basophil# 0.03 X10^3/uL; Basophil% 0.7 % (0-1); Eosinophils% 2.3 % (0-5); Hematocrit 47.2 % (40-54); Hemoglobin 15.7 g/dl (13.0-16.5); Lymphocyte # 1.36 X10^3/ul (4.0); Lymphocyte % 30.7 % (19-41); Mean Corp Hgb Conc 33.3 g/gl (32-36); Mean Corpuscular Hgb 30.1 pg (27.0-32.0); Mean Corpuscular Volume 90.6 fL (80-94); Mean Platelet Vol. 9.7 fl (6.2-12.0); Monocyte# 0.56 X10^3/uL; Monocyte% 12.6 % (0-10); Neutrophil # 2.36 X10^3/uL (2.7-7.7); Neutrophil % 53.2 % (47-70); Platelet Count 154 K/mm3 (150-450); RBC Distribution Width CV 13.3 % (11.6-14.6); RBC Distribution Width SD 43.8 fl (35.1-43.9); Red Blood Count 5.21 M/mm3 (4.6-6.2); White Blood Count 4.4 K/mm3 (4.4-11.0)
[2017-12-24 10:23] LABS: POSITIVE COUNT NO; POSITIVE DIFFERENTIAL NO; POSITIVE MORPHOLOGY NO
[2017-12-24 10:35] LABS: ALB/GLOB Ratio 0.8 RATIO (0.9-2.4); AST(SGOT) 113 U/L (15-37); Alanine Aminotransfer ALT/SGPT 143 U/L (16-61); Albumin, Serum 3.5 g/dL (3.2-5.0); Alkaline Phosphatase 76 U/L (45-117); Anion Gap 9 (5-15); BUN 10 mg/dL (7-18); BUN/Creat Ratio 9.7 RATIO (10-20); Calcium,Total 8.8 mg/dL (8.5-10.1); Chloride 107 mmol/L (98-107); Creatinine, Serum 1.03 mg/dL (0.70-1.30); EST Glomerular Filtration Rate 82 mL/min (>60); Est Glom Filt Rate - Afr Amer 100 mL/min (>60); Estimated Creatinine Clearance 95.44 ml/min; Globulin 4.5 g/dL (2.2-4.2); Glucose 80 mg/dL (74-106); Potassium 3.8 mmol/L (3.5-5.1); Sodium Level 144 mmol/L (136-145)
--- NOTE | 2017-12-24 10:37 | ED.RN ---
Pt has wallet in his personal belonging bag. It contains suárez money equalling [id number]. This amount was verified by this nurse and amrita rebolledo. He alos has a smart phone and a investigative writer in his personal bag.
--- NOTE | 2017-12-24 11:46 | ED.RN ---
RESTING IN BED. NO DISTRESS NOTED. PLACED ON CONTINUOUS PULSE OX MONITORING.
--- NOTE | 2017-12-24 17:29 | ED.RN ---
Addendum entered by Gema Chavez 12/24/17 17:31: Original Note: [facility] WITH [facility] CALLED TO CHECK IN ON PT. I LET HIM KNOW THAT HE IS SLEEPING AT THIS TIME. STATED THAT HE WILL PASS THE INFORMATION ON TO [facility] AND THEY WILL CHECK BACK IN ON PT LATER THIS EVENING;
--- NOTE | 2017-12-24 18:13 | NURSING ---
[facility] WILL BE IN FROM [facility]
--- NOTE | 2017-12-24 19:30 | NURSING ---
[facility] ON SITE
--- NOTE | 2017-12-24 21:58 | ED.DEP ---
ED Disposition - Plan for ED Patient: Disposition: Home or Assisted Living Chief Complaint: General Illness Diagnosis: Alcohol abuse Instructions: ED Alcohol Intoxication Referrals: [facility],Out of [Primary Care Provider] -
--- NOTE | 2017-12-24 22:21 | NURSING ---
alcohol was taken from the pt. and given to security. crisis and security talked with the pt. and it was discharged and is walking. directions from security to the [employer] to get food.
== END 2017-12-24 22:23 | disposition home or self-care (01) ==
PROVIDERS: Emergency Provider Emergency Medicine
DX: F10.229 Alcohol dependence with intoxication, unspecified (principal); Y90.7 Blood alcohol level of 200-239 mg/100 ml; F32.9 Major depressive disorder, single episode, unspecified; R44.1 Visual hallucinations
CPT/HCPCS: 36415; 80053; 80307; 80320; 85025; 96372; 99282; G0480; J3486